=== PATIENT | male | born 1990 | race Caucasian/White ===

== ENCOUNTER 2019-09-30 20:32 | Emergency (ER) | payer MEDICAID ==
[2019-09-30 20:37] VITALS: BP 130/80
[2019-09-30] MEDS ORDERED: PROMETHAZINE HCL 25 MG TABLET PO ONE (21:22)
[2019-09-30] MEDS ORDERED: OXYCODONE-ACETAMINOPHEN 5-325 MG TABLET PO ONE (21:22)
[2019-09-30] MEDS ORDERED: HYDROCODONE/ACETAMINOPHEN 5-325 MG (6 TAB/ER DISP) PO PRN (21:22)
--- NOTE | 2019-09-30 21:25 | ER Document Report ---
HPI - HPI Time Seen by Provider: 09/30/19 21:15 Pain Level: 5 Context: Patient is a 29-year-old male that comes to the emergency department for chief complaint of dental pain. He states he has broken teeth in his left lower molars, he actually saw the dentist this morning and took 2 dose of antibiotics but he states he could not sleep and the pain was too bad. He was not provided with any pain medications. He denies fever, sore throat, difficulty swallowing, or some swelling of the face. He denies having this previously. He takes no daily medications, denies any past medical history. He has a bottle of clindamycin with him and he states he took 2 doses today. Past Medical History - General Information source: Patient - Social History Smoking Status: Current Every Day Smoker Frequency of alcohol use: Social Drug Abuse: None Lives with: Family Family History: None. denies: Arthritis, CAD, CVA, DM, Hyperlipidemia, Hypertension, Malignancy, Thyroid Disfunction Patient has homicidal ideation: No - Immunizations Immunizations up to date: Yes Hx Diphtheria, Pertussis, Tetanus Vaccination: Yes Vertical Provider Document - CONSTITUTIONAL General Appearance: WD/WN. negative: No Apparent Distress - Patient appears mildly uncomfortable but is not in severe distress - INFECTION CONTROL TRAVEL OUTSIDE OF THE [place] IN LAST 30 DAYS: No - HEENT HEENT: Atraumatic, Normocephalic, PERRLA. negative: Conjuctival Injection, Pharyngeal Exudate, Pharyngeal Tenderness, Pharyngeal Erythema, Tympanic Membrane Red, Tympanic Membrane Bulging Mouth Diagram: 1 - Dental caries with surrounding erythema and tenderness but no significant swelling, no abscess, no other concerning findings. No swelling of the face on the outside. - NECK Neck: Normal Inspection. negative: Lymphadenopathy-Left, Lymphadenopathy-Right - RESPIRATORY Respiratory: Breath Sounds Normal, No Respiratory Distress - CARDIOVASCULAR Cardiovascular: Regular Rate, Regular Rhythm - GI/ABDOMEN Gastrointestinal: Abdomen Soft, Abdomen Non-Tender. negative: Abdomen Tender - BACK Back: Normal Inspection - MUSCULOSKELETAL/EXTREMETIES Musculoskeletal/Extremeties: MAEW, FROM, Non-Tender - NEURO Level of Consciousness: Awake, Alert, Appropriate Motor/Sensory: No Motor Deficit, No Sensory Deficit - DERM Integumentary: Warm, Dry, No Rash Course - Re-evaluation Re-evalutation: Patient with evidence of dental infection but no evidence of abscess or any other concerning findings. Patient is simply here requesting something for the discomfort. He is already on appropriate clindamycin. Provided with pain medication here and a Dosepak for home, instructed him to follow-up with the dentist for additional management, discussed return precautions. Patient states appreciation and agreement. - Vital Signs Vital signs: Temp Pulse Resp BP Pulse Ox 98.5 F 63 16 130/80 H 99 09/30/19 20:36 09/30/19 20:36 09/30/19 20:36 09/30/19 20:36 09/30/19 20:36 Discharge - Discharge Clinical Impression: Dental infection, Pain, dental Condition: Stable Disposition: HOME, SELF-CARE Additional Instructions: Your evaluation is consistent with a dental infection. Take the clindamycin antibiotics as you were prescribed. The recommendation is to take 1000 mg of Tylenol and 600 mg of ibuprofen every 6 hours, however at night you can take the provided stronger pain medication to help you sleep. Pain should resolve. Follow-up with the dentist for repair/extraction of the teeth of this will continue to happen. Return if you worsen including severe worsening pain, swelling of the face, fever, or any other concerning symptoms. Forms: Return to Work
== END 2019-09-30 21:29 | disposition home or self-care (01) ==
LOC: ER 20:32
DX: K04.7 Periapical abscess without sinus (principal); K02.9 Dental caries, unspecified; K08.89 Other specified disorders of teeth and supporting structures; F17.200 Nicotine dependence, unspecified, uncomplicated
CPT/HCPCS: 99283; J3490

== ENCOUNTER 2019-10-31 13:27 | Emergency (ER) | payer MEDICAID ==
[2019-10-31 13:41] VITALS: BP 138/70
--- NOTE | 2019-10-31 13:50 | ER Document Report ---
ED Extremity Problem, Lower - General Chief Complaint: Knee Pain Stated Complaint: KNEE PAIN Time Seen by Provider: 10/31/19 13:35 Primary Care Provider: [facility] [Provider Group] - Follow up as needed RONALD MULLINS MD [ACTIVE STAFF] - 11/03/19 LEROY WYLIE [Primary Care Provider] - Follow up as needed Mode of Arrival: Ambulatory Information source: Patient Notes: 29-year-old male presented to ED for complaint of left knee pain. He states he was getting out of the car last night about 2030 when he twisted his knee. He states he felt like something moved. He states he has had a sharp pain in the knee he states that when he walks on it the pain is a 5 out of 5 the right now sitting it is a 2 out of 5. He states he did take 800 ibuprofen about 4 hours ago. He states he does not have any past medical history or any surgical history. He states he does use a vapor cigarette he drinks 2-3 beers a week and does not use any illicit drugs. He is alert oriented respirations regular nonlabored speaking in full sentences. He did walking with a limp. I have encouraged him to use a wheelchair until we can get some x-rays of the leg. REVIEW OF SYSTEMS: CONSTITUTIONAL : Denies fever, chills, or sweats. Denies recent illness. EENT: Denies eye, ear, throat, or mouth pain or symptoms. Denies nasal or sinus congestion. MUSCULOSKELETAL: Complains of pain to the left knee after he twisted getting out of the car last night. He states he felt something move in the knee. He states he has a 2 out of 5 pain when he sitting still but a 5 out of 5 pain when he is walking on the knee. SKIN: Denies rash or skin lesions. NEUROLOGICAL: Denies altered mental status or loss of consciousness. Denies headache. Denies weakness or paralysis or loss of use of either side. Denies problems with speech. Denies sensory or motor loss. PSYCHIATRIC: Denies anxiety or stress or depression. ALL OTHER SYSTEMS REVIEWED AND NEGATIVE. PHYSICAL EXAMINATION: GENERAL: Well-appearing, well-nourished and in no acute distress. HEAD: Atraumatic, normocephalic. EYES: Pupils equal round extraocular movements intact, conjunctiva are normal. ENT: Nares patent NECK: Normal range of motion LUNGS: No respiratory distress Musculoskeletal: Patient has full range of motion to the knee but there is some patient does have minimal valgus and valgus laxity and pain with range of motion NEUROLOGICAL: Normal speech, limp due to the pain in the knee PSYCH: Normal mood, normal affect. SKIN: Warm, Dry, normal turgor, no rashes or lesions noted. TRAVEL OUTSIDE OF THE [place] IN LAST 30 DAYS: No - HPI Patient complains to provider of: Injury, Pain Location: Knee Occurred: Yesterday Where: Home, Outdoors Onset/Duration: Gradual, Persistent, Waxing and waning Quality of pain: Sharp Severity: Mild Pain Level: 2 - Sitting 5 1 walking Recent injury: Yes Associated symptoms: Painful ambulation Exacerbated by: Hanging down, Movement, Walking Relieved by: Elevation, Ice, Rest - Related Data Allergies/Adverse Reactions: No Known Allergies Allergy (Verified 11/07/12 09:58) Past Medical History - General Information source: Patient - Social History Smoking Status: Former Smoker - This is vapor cigarette Frequency of alcohol use: Social Drug Abuse: None Lives with: Family Family History: None. denies: Arthritis, CAD, CVA, DM, Hyperlipidemia, Hy pertension, Malignancy, Thyroid Disfunction Patient has suicidal ideation: No Patient has homicidal ideation: No - Past Medical History Cardiac Medical History: Reports: None Pulmonary Medical History: Reports: None EENT Medical History: Reports: None Neurological Medical History: Reports: None Endocrine Medical History: Reports: None Renal/ Medical History: Reports: None Malignancy Medical History: Reports None GI Medical History: Reports: None Musculoskeletal Medical History: Reports None Skin Medical History: Reports None Psychiatric Medical History: Reports: None Traumatic Medical History: Reports: None Infectious Medical History: Reports: None Surgical Hx: Negative Past Surgical History: Reports: None - Immunizations Immunizations up to date: Yes Hx Diphtheria, Pertussis, Tetanus Vaccination: Yes Physical Exam - Vital signs Vitals: Temp Pulse Resp BP Pulse Ox 97.8 F 95 16 143/75 H 98 10/31/19 13:33 10/31/19 13:33 10/31/19 13:33 10/31/19 13:33 10/31/19 13:33 Course - Re-evaluation Re-evalutation: 10/31/19 22:19 X-ray discussed with patient and written report of x-ray given to patient. Patient was treated with a padded Jeff wrap to the knee after I consulted at 1445. He stated that patient was not able to completely straighten his leg that agitated Jeff wrap would be sufficient. He stated that the knee immobilizer was not can help him any more than a pad and Jeff wrap it it was too painful to bear weight on the foot. Patient was given instructions for no weightbearing on crutches and was instructed to follow-up with Dr. Mullins. Patient verbalized understanding and agreement with treatment plan. Patient was discharged home with a [place] dispense back and instructed to use ibuprofen when possible and use [place] when the pain was more than the ibuprofen will cover. Patient verbalized understanding of this. - Vital Signs Vital signs: Temp Pulse Resp BP Pulse Ox 98.0 F 92 18 138/70 H 99 10/31/19 13:40 10/31/19 13:40 10/31/19 13:40 10/31/19 13:40 10/31/19 13:40 - Diagnostic Test Radiology reviewed: Image reviewed, Reports reviewed Procedures - Immobilization Left Knee Time completed: 14:50 Immobilizer type: Jeff wrap - padded jeff wrap, Crutches - no weight bearing Performed by: PCT Post-Proc Neuro Vasc Exam: Normal Alignment checked and good: Yes Discharge - Discharge Clinical Impression: Knee effusion, left Injury of anterior cruciate ligament Qualifiers: Encounter type: initial encounter Laterality: left Qualified Code(s): S89.92XA - Unspecified injury of left lower leg, initial encounter Condition: Stable Disposition: HOME, SELF-CARE Additional Instructions: SUSPECTED INTERNAL KNEE INJURY: The examiner of your injured knee suspects an internal injury to the cartilage or internal ligaments. This must be further investigated by an orth opedic specialist. The knee should be protected, ice packed, and elevated while awaiting your follow-up exam by the orthopedist. If there is severe swelling, severe pain, or any new symptoms while awaiting your exam, you should call the orthopedist. (If he/she is unavailable, call us or return for re-examination.) JEFF WRAP: A compression dressing (jeff wrap) has been placed. This helps hold the area still. It limits swelling and internal bleeding. The wrap should be comfortably snug -- not tight. You should feel a sense of pressure, but not severe pain under the wrap. Unless the physician tells you otherwise, you can adjust the wrap for comfort. If the wrap causes symptoms suggesting it's too tight -- uncomfortable pressure, swelling or discoloration beyond the wrap, numbness, or severe pain -- you must loosen the wrap. If these symptoms don't resolve promptly, return for re-evaluation. USE OF CRUTCHES: The doctor has recommended that you not bear weight at this time. You will need to use crutches. Adjust the crutches so the tops come to about two inches under the armpit while you are standing upright. Use your hands -- not your armpits -- to support your weight. To get into a chair, support yourself with one crutch on the injured side. Hold the chair with the other hand, then lower yourself while putting all your weight on the good leg. Going up stairs is `good leg up, step up, then bring up crutches and bad leg.' Down stairs is `bad leg and crutches down, then bring good leg down.' If you develop numbness or swelling in an arm or hand, you are using the crutches incorrectly. Return if you are having any problems with the crutches. ICE & ELEVATION: Apply ice packs frequently against the painful area. Many different schedules are recommended, such as "20 minutes on, 20 minutes off" or "one hour ice, two hours rest." If you need to work, you may need to go longer between ice treatments. You should plan to have the area ice packed AT LEAST one-fourth of the time. The ice should be applied over the wrap, tape, or splint, or over a layer of cloth -- not directly against the skin. Some ice bags have a built-in cloth and can be put directly on the skin. Your injured part should be elevated as much as possible over the next 48 hours. Try to keep the injury above the level of the heart. Avoid use of the injured area. Elevation and rest will decrease the swelling. USE OF VAAS-CVP-WIPIREL IBUPROFEN: Ibuprofen (Advil, Nuprin, Medipren, Motrin IB) is a medication for fever and pain control. In addition, it has anti- inflammatory effects which may be beneficial, especially in the treatment of injuries. It's best to take ibuprofen with food. Persons with ulcer disease or danielle rgy to aspirin should notify their physician of this before taking ibuprofen. Ibuprofen can be given every four to six hours, for a total of four doses daily. Age Pain or fever dose Antiinflammatory dose 6-8 yr 200 mg (1 tab) 200 mg (1 tab) 9-11 yr 200 mg (1 tab) 200-400 mg (1-2 tab) 11-14 yr 200-400 mg (1-2 tab) 400 mg (2 tab) 15-adult 400 mg (2 tab) 600 mg (3 tab) ORAL NARCOTIC MEDICATION: You have been given a norco dispense pack for pain control. This medication is a narcotic. It's best taken with food, as nausea can result if taken on an empty stomach. Don't operate machinery or drive within six hours of taking this medic ation. Do not combine this medicine with alcohol, or with any medication which can cause sedation (such as cold tablets or sleeping pills) unless you get permission from the physician. Narcotics tend to cause constipation. If possible, drink plenty of fluids and eat a diet high in fiber and fruits. Please be aware that prescription narcotics also have the potential for abuse. People become addicted to these medications because of the general sense of wellbeing that they induce. This feeling along with a significant reduction in tension, anxiety, and aggression provides a stimulating seductive quality to these drugs. Once your pain is under control, we encourage you to discard your unused narcotics. FOLLOW-UP CARE: If you have been referred to a physician for follow-up care, call the physicians office for an appointment as you were instructed or within the next two days. If you experience worsening or a significant change in your symptoms, notify the physician immediately or return to the Emergency Department at any time for re-evaluation. Prescriptions: Ibuprofen [Motrin 800 mg Tablet] 800 mg PO Q8H PRN #20 tab PRN Reason: Forms: Elevated Blood Pressure, Special Work Note Referrals: [facility],NO [Primary Care Provider] - Follow up as needed [facility] [Provider Group] - Follow up as needed RONALD MULLINS MD [ACTIVE STAFF] - 11/03/19
--- NOTE | 2019-10-31 14:39 | RADIOLOGY REPORT (SQ) ---
EXAM DESCRIPTION: KNEE LEFT 4 VIEW IMAGES COMPLETED DATE/TIME: 10/31/2019 2:02 pm REASON FOR STUDY: twisted knee pain swelling COMPARISON: None. NUMBER OF VIEWS: Four views. TECHNIQUE: AP, lateral, and both oblique radiographic images acquired of the left knee. LIMITATIONS: None. FINDINGS: MINERALIZATION: Normal. BONES: No acute fracture or dislocation. No worrisome bone lesions. A subtle notch seen of the late ral femoral condyle on the lateral radiograph may be related to anterior cruciate ligament injury. JOINT: Small joint effusion. Early tricompartmental degenerative changes are demonstrated. SOFT TISSUES: No soft tissue swelling. No radio-opaque foreign body. OTHER: No other significant finding. IMPRESSION: Small joint effusion. Subtle lateral femoral condyle finding may be related to anterior cruciate ligament injury. Recommend correlation with mechanism of injury. TECHNICAL DOCUMENTATION: JOB ID: [id number] 2010 [employer]- All Rights Reserved Reading location - IP/workstation name: [email or web address]
[2019-10-31] MEDS ORDERED: HYDROCODONE/ACETAMINOPHEN 5-325 MG (6 TAB/ER DISP) PO PRN (15:01)
== END 2019-10-31 15:13 | disposition home or self-care (01) ==
LOC: ER 13:27
DX: S89.92XA Unspecified injury of left lower leg, initial encounter (principal); M25.462 Effusion, left knee; M25.562 Pain in left knee; X50.1XXA Overexertion from prolonged static or awkward postures, initial encounter; Z87.891 Personal history of nicotine dependence
CPT/HCPCS: 99284